=== PATIENT | female | born 1980 | race Hispanic/Latino ===

== ENCOUNTER 2024-12-23 15:29 | Emergency (ER) | payer SELFPAY ==
[~2024-12-23] VITALS: Ht 160 cm; Wt 64.6 kg
--- NOTE | 2024-12-23 16:15 | ERN ---
ED Note History of Present Illness Stated Complaint: RT EYE PAIN Chief Complaint: Eye Problems Time Seen by MD: 15:37 Time Seen by Midlevel: 15:32 Dictation: PATIENT IS A 44-YEAR-OLD FEMALE STATES SHE WAS AT WORK YESTERDAY WHEN SHE BENT OVER AND POKED HERSELF IN THE RIGHT EYE WITH SOMETHING ON THE GROUND. SHE STATES SHE HAD AN EYE WASH AT THE JOB SITE. SINCE THEN SHE NOT A COMPLAINING OF ANY BLURRED VISION NO CONTACTS OR CORRECTIVE LENSES. SHE STATES SHE HAS A HEADACH AND REDNESS TO THE RIGHT EYE. A PRIMARY CARE DOCTOR AND TETANUS SHOT IS UP TO DATE Allergies: Coded Allergies: No Known Allergies (Unverified Allergy, Unknown, 12/23/24) Past Medical History Past Medical History: Hypertension Surgical History: History: Not Applicable LMP: Dec 16, 2024 RN Note Reviewed/Agreed w/PFSH: Yes Review of System Dictation CONSTITUTIONAL: NEGATIVE EXCEPT FOR HPI HEAD/FACE: NEGATIVE EXCEPT FOR HPI EENT: NEGATIVE EXCEPT FOR HPI RIGHT EYE REDNESS/PAIN RESPIRATORY: NEGATIVE EXCEPT FOR HPI GASTROINTESTINAL/ABDOMINAL: NEGATIVE EXCEPT FOR HPI GENITOURINARY: NEGATIVE EXCEPT FOR HPI MUSCULOSKELETAL: NEGATIVE EXCEPT FOR HPI INTEGUMENTARY: NEGATIVE EXCEPT FOR HPI NEUROLOGICAL/PSYCH: NEGATIVE EXCEPT FOR HPI HEMATOLOGIC/LYMPHATIC: NEGATIVE EXCEPT FOR HPI ALL SYSTEMS NEGATIVE, EXCEPT NOTED ABOVE. 13 POINT REVIEW OF SYSTEMS ASSESSED AND ALL NEGATIVE EXCEPT FOR ABOVE. Initial Vital Sign VS Vital Signs Date Time Temp Pulse Resp B/P (MAP) Pulse Ox O2 Delivery O2 Flow Rate FiO2 12/23/24 15:35 99.3 75 18 131/82 99 12/23/24 17:33 Room Air* 0 21 Physical Exam Dictation VITAL SIGNS REVIEWED GENERAL APPEARANCE: ALERT, ORIENTED X 3, MILD ACUTE DISTRESS, WELL DEVELOPED, NOURISHED. HEAD AND FACE: NON-TRAUMATIC. EYES: PERRL, RIGHT SUBCONJUNCTIVAL HEMORRHAGE NOTED. EOMS INTACT EARS: PINNAS INTACT AND NO SIGNS OF TRAUMA OR ERYTHEMA EAR CANALS CLEAR AND NO DISCHARGE TM NO ERYTHEMA NOSE: NO DISCHARGE, NO BLEEDING. OROPHARYNX: MOUTH NORMAL, TONGUE PINK, PHARYNX CLEAR,NO ERYTHEMA, TONSILS NO EXUDATES, NO ABSCESSES NOTED, MUCOUS MEMBRANE MOIST NECK: SUPPLE, NON-TENDER, NO THYROMEGALY, NO MASSES, NO JVD, NO BRUITS BREAST:DEFERRED CHEST:NO TENDERNESS, NO CREPITUS, NO PARADOXICAL MOVEMENT, NO RETRACTIONS LUNGS:CLEAR, WELL-VENTILATED, SYMMETRIC, NO RALES, NO WHEEZING, NO RHONCHI, NO STRIDOR, GOOD BREATH SOUNDS BILATERALLY HEART: REGULAR RATE, REGULAR RHYTHM, NO MURMUR, NO GALLOPS VASCULAR: NO PERIPHERAL EDEMA, ABDOMEN: SOFT, POSITIVE BOWEL SOUNDS, NONDISTENDED, NO GUARDING, NONTENDER, NO REBOUND, NO MASSES NO HEPATOMEGALY, NO SPLENOMEGALY, NO AVILA'S SIGN, NO HERNIAS. RECTAL: DEFERRED GENITAL: DEFERRED NEUROLOGICAL: NORMAL SPEECH, MOTOR FUNCTION INTACT, SENSORY FUNCTION INTACT MUSCULOSKELETAL: NECK NONTENDER, FULL RANGE OF MOTION, BACK NONTENDER, FULL RANGE OF MOTION, EXTREMITIES: NONTENDER, FULL RANGE OF MOTION SKIN: COLOR PINK, DRY, NO TURGOR, NO RASH, NO LACERATIONS, NO ABRASIONS, NO CONTUSIONS. LYMPHATIC: DEFERRED Results (Laboratory/Radiology) Labs Reviewed?: Yes ED Course ED Course Orders Procedure Category Date Status Time Visual Acuity Test CPOE 12/23/24 Transmitted (Er) 16:12 Tetracaine Hcl PHA 12/23/24 Complete (Pontocaine 0.5% 16:30 Acetaminophen 500mg PHA 12/23/24 Complete Tab (Tylenol 500mg T 16:30 Fluorescein Sodium PHA 12/23/24 Complete (Gkdld-N-Vqoal At) 16:30 Current Medications Medications (Trade) Dose Ordered Sig/Zenobia Route PRN Reason Start Time Stop Time Status Last Admin Dose Admin Acetaminophen (TYLenol 500MG TAB) 1,000 mg ONCE ONCE PO 12/23/24 16:30 12/23/24 16:31 DC 12/23/24 17:29 Fluorescein Sodium (Stdss-C-Uwank At) 1 strip ONCE ONCE OP 12/23/24 16:30 12/23/24 16:31 DC 12/23/24 17:28 Tetracaine HCl (Pontocaine 0.5% Ophth Soln) 2 drop ONCE ONCE OP 12/23/24 16:30 12/23/24 16:31 DC 12/23/24 17:28 Vital Signs Date Time Temp Pulse Resp B/P (MAP) Pulse Ox O2 Delivery O2 Flow Rate FiO2 12/23/24 17:33 99.3 72 16 130/80 98 Room Air* 0 21 12/23/24 15:35 99.3 75 18 131/82 99 1755/PATIENT DISCHARGED HOME AFTER EYE EXAM. PATIENT WILL BE GIVEN VIGAMOX DROPS ONE DROP T.I.D. FOR SEVEN DAYS. TOLD TO FOLLOW UP WITH [facility] IN THE NEXT 1-2 DAYS. SHE STATES SHE DOES NOT WEAR CONTACTS OR CORRECTIVE LENSES Medical Decision Making [facility] 1745/PROCEDURE EXPLAINED TO PATIENT SHE AGREED TO PROCEED TETRACAINE TWO DROPS TO RIGHT EYE FLUORESCEIN STAIN APPLIED RIGHT EYE WAS EXAMINED WITH UPPER LID EVERTED WOOD'S LAMP. PATIENT HAS A LATERAL SUBCONJUNCTIVAL HEMORRHAGE CORNEA IS INTACT NO FOREIGN BODIES PATIENT TOLERATED WELL Procedure Procedure Dictation: 174/PROCEDURE EXPLAINED TO PATIENT SHE AGREED TO PROCEED TETRACAINE TWO DROPS TO RIGHT EYE FLUORESCEIN STAIN APPLIED RIGHT EYE WAS EXAMINED WITH UPPER LID EVERTED WOOD'S LAMP. PATIENT HAS A LATERAL SUBCONJUNCTIVAL HEMORRHAGE CORNEA IS INTACT NO FOREIGN BODIES PATIENT TOLERATED WELL DX & DISP Disposition: Discharge Departure Impression: Primary Impression: Blunt trauma, right eye Additional Impression: Subconjunctival hemorrhage of right eye Condition: Stable Scripts Moxifloxacin HCl (Vigamox 0.5% Ophth Soln) 0.5 % Opsol 1 DROP OD TID for 7 Days, #5 ML Prov: MARCUS SILVA NP 12/23/24 Additional Instructions: FOLLOW-UP WITH PRIMARY CARE PROVIDER IN 1 TO 2 DAYS. TAKE MEDICATIONS DIRECTED HERE IN THE EMERGENCY ROOM. OKAY TO CONTINUE HOME MEDICATIONS UNLESS OTHERWISE DISCUSSED DURING YOUR VISIT IN THE EMERGENCY ROOM TODAY. RETURN TO YOUR NEAREST EMERGENCY ROOM IF SYMPTOMS WORSEN OR IF THERE IS NO IMPROVEMENT. CALL 911 IF YOU NEED IMMEDIATE ASSISTANCE. TAKE TYLENOL OR MOTRIN [id number] NEEDED AND IF NO CONTRAINDICATIONS ARE PRESENT. INCREASE ORAL HYDRATION. A WOUND CULTURE OR URINE CULTURE WAS ORDERED HERE IN THE EMERGENCY ROOM DEPARTMENT PLEASE FOLLOW-UP WITH PRIMARY CARE PROVIDER AND ADVISE THEM TO GET REPEAT PORTS FROM OUR FACILITY. IF YOU HAD ANY DEDRICK WRAP/SPLINTS THAT WERE APPLIED HERE, PLEASE DO NOT REMOVE THEM UNTIL YOU SEE YOUR PRIMARY CARE OR SPECIALTY. USE VIGAMOX DROPS 3 TIMES A DAY DIRECTED FOR THE NEXT SEVEN DAYS. CALL [facility] IN [facility] AND REQUEST AN APPOINTMENT TOMORROW. TYLENOL OR MOTRIN [id number] NEEDED FOR HEADACHE OR PAIN. Referrals: SELF,REFERRAL (PCP) Time of Disposition: 17:53 I have reviewed the case, and I agree with, Diagnosis and Plan MARCUS SILVA NP Dec 23, 2024 16:15
[2024-12-23] MEDS: FLUORESCEIN SODIUM 1 STRIP STRIP OP ONE (17:28)
[2024-12-23] MEDS: TETRACAINE HCL 0.5% 4 ML OPHTH SOLN OP ONE (17:28)
[2024-12-23 17:33] VITALS: BP 130/80; PULSE 72; RESP 16; TEMP 99.3; O2SAT 98
[2024-12-23] MEDS ORDERED: MOXIOS OD (17:54)
== END 2024-12-23 18:12 | disposition home or self-care (01) ==
LOC: EDH 15:29
DX: S05.91XA Unspecified injury of right eye and orbit, initial encounter (principal); H11.31 Conjunctival hemorrhage, right eye; I10 Essential (primary) hypertension; X58.XXXA Exposure to other specified factors, initial encounter; Y93.89 Activity, other specified; Y92.89 Other specified places as the place of occurrence of the external cause; Y99.8 Other external cause status
CPT/HCPCS: 99283